=== PATIENT | female | born 1950 | race Caucasian/White ===

== ENCOUNTER 2020-11-01 13:27 | Day surgery (SDC) | payer MEDICARE, BC ==
[2020-10-30 10:25] VITALS: BMI 25.4
[~2020-11-01 13:27] MED LIST: ACETAMINOPHEN TAB 500 MG TAB PO PRN; DEXAMETHASONE SOD PHOSPHATE 4 MG/ML 1 ML VIAL IV ONE; HEPARIN SODIUM,PORCINE/PF 5,000 UNIT/0.5 ML SYRINGE SQ PRN; HYDROmorphone 0.5 MG/0.5 ML SYRINGE IVP PRN; LACTATED RINGERS 1,000 ML IV SCH; LIDOCAINE 1% (10MG/ML) FOR IV START INTRADERMA PRN; MIDAZOLAM 2 MG/2 ML VIAL IV PRN; ONDANSETRON 4 MG/2 ML VIAL IVP ONE; Pre Op ABX Message 1 EACH MISC MISCELLANE ONE
[2020-11-01 14:15] VITALS: TEMP 98.3
--- NOTE | 2020-11-01 14:28 | P.GSHP ---
History of Present Illness H&P Date: 11/01/20 Chief Complaint: With the melanoma right lateral back This 70-year-old female referred from Dr. Cleveland walker. 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 She will stay for wide local excision. Past Medical History Past Medical History: Cancer, Thyroid Disorder Additional Past Medical History / Comment(s): skin ca, malignant melanoma on back, varicose veins History of Any Multi-Drug Resistant Organisms: None Reported Past Surgical History: Back Surgery Additional Past Surgical History / Comment(s): back surgery Past Anesthesia/Blood Transfusion Reactions: No Reported Reaction Smoking Status: Never smoker - Past Family History Mother Family Medical History: Cancer Additional Family Medical History / Comment(s): kidney Sister(s) Family Medical History: Cancer Additional Family Medical History / Comment(s): ovarian Medications and Allergies Home Medications Medication Instructions Recorded Confirmed Type Thyroid,Pork [Principal Secretary Thyroid] 120 mg PO DAILY 10/30/20 11/01/20 History Allergies Allergy/AdvReac Type Severity Reaction Status Date / Time No Known Allergies Allergy Verified 11/01/20 14:19 Surgical - Exam Vital Signs Temp Pulse Resp BP Pulse Ox 98.3 F 62 16 156/66 96 11/01/20 13:58 11/01/20 13:58 11/01/20 13:58 11/01/20 13:58 11/01/20 13:58 - General well developed, well nourished, no distress - Eyes PERRL - ENT normal pinna - Neck no masses - Respiratory normal expansion - Cardiovascular Rhythm: regular - Abdomen Abdomen: soft, non tender - Genitourinary normal external genitalia - Integumentary 2 cm erythematous area of seen biopsy right lower back Assessment and Plan Assessment: Superficial spreading melanoma right lower back. We'll perform wide local excision.
[2020-11-01] MEDS ORDERED: LIDOCAINE 2%-EPI 1:100,000 20 ML VIAL SQ ONE (16:20)
[2020-11-01] MEDS ORDERED: fentaNYL (PF) 50 MCG/ML 2 ML AMP ONE (16:23)
[2020-11-01] MEDS ORDERED: MIDAZOLAM 2 MG/2 ML VIAL ONE (16:23)
[2020-11-01] MEDS ORDERED: PROPOFOL 10 MG/ML 20 ML VIAL IV ONE (16:23)
[2020-11-01] MEDS ORDERED: LIDOCAINE 1% INJ 10MG/ML (20 ML MDV) ONE (16:23)
--- NOTE | 2020-11-01 17:02 | P.OP ---
Date of Procedure: 11/01/20 Preoperative Diagnosis: Malignant melanoma back Postoperative Diagnosis: Malignant melanoma back Procedure(s) Performed: Wide local excision of malignant melanoma of back Anesthesia: TAMY Surgeon: Jackson Bell Pathology: other (Wide local excision of melanoma of back) Condition: stable Disposition: PACU Description of Procedure: Patient's placed on the operative table in the supine position she received IV sedation and just placed the prone position. Her back was prepped and draped usual sterile fashion. The patient's lesion was on the right lower back. There is less is 1% local Xylocaine. Then using elliptical skin incision lesion was excised. The suture tag was placed on the superior edge of the specimen. Specimens of pathology. It was dissected out with left cautery. The skin was closed interrupted 3-0 nylon suture. Sterile dressing applied. Patient top she will was sent to recovery room in stable patient.
[2020-11-01 17:14] VITALS: RESP 16
[2020-11-01 17:36] VITALS: BP 111/59; PULSE 74
== END 2020-11-01 17:53 | disposition home or self-care (01) ==
LOC: OR 13:27
PROVIDERS: ATTEND Surgery
DX: C43.59 Malignant melanoma of other part of trunk (principal); E07.9 Disorder of thyroid, unspecified; I83.90 Asymptomatic varicose veins of unspecified lower extremity; Z80.51 Family history of malignant neoplasm of kidney; Z80.41 Family history of malignant neoplasm of ovary; Z79.890 Hormone replacement therapy
CPT/HCPCS: 11606; 88305; 88342; 88341; J2250; J1100; J2405; J2001; J3010; J2704; J1644

== ENCOUNTER → 2020-12-04 | Outpatient (CLI) | payer MEDICARE, BC ==
--- NOTE | 2020-12-04 18:54 | BD ---
EXAMINATION TYPE: Axial Bone Density DATE OF EXAM: 12/04/2020 COMPARISON: 12.04.2005 CLINICAL HISTORY: 70 YR OLD FEMALE....ICD-10 CODE: Z78.0 POST MENOPAUSAL Height: 64.4 Weight: 169 FRAX RISK QUESTIONS: Family History (Parent hip fracture): YES History of Fracture in Adulthood: YES RISK FACTORS HISTORY OF: Spine Fracture: YES, LUMBAR SPINE WITH LAMINECTOMY Surgery to Spine YES, LAMINECTOMY LUMBAR SPINE Family History of Osteoporosis: YES, MOTHER AND SISTER, WITH HIP REPLACEMENTS Postmenopausal woman: YES, AT ABOUT 45, 46 YRS OLD Take estrogen and/or progesterone medications: YES, FOR OVER 20 YRS, STOPPED 1 YR AGO Lost more than 2 inches in height since high school: YES Hyperparathyroidism: UNSURE Adrenal Insufficiency: UNSURE MEDICATIONS: Thyroid Medications: YES, AUTOMATED CUTTING MACHINE OPERATOR THYROID, 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 Bone mineral density about the R hip (g/cm2): 0.844 Bone mineral density about the L hip (g/cm2): 0.791 T Score values are as follows: -----R Neck: -1.6 -----L Neck: -1.6 -----R Total: -1.3 -----L Total: -1.7 Bone mineral density has: Increased 1.6% since study of: 12.04.2005 FRAX%s: THERE IS A 16.3% CHANCE FOR A MAJOR OSTEOPOROTIC FX AND A 2.5% FOR HIP.....PROBABILITY FOR FX IN 10 YRS TIME Bone mineral density about the L Wrist (g/cm2): 0.570 T Score values are as follows: -----Dist. R+U: 0.7 -----Prox. R+U: -1.5 -----Radius total: -1.4 Bone mineral density FIRST FOREARM SCAN FOR PATIENT IMPRESSION: Osteopenia (T Score between -2.5 and -1). There is slightly increased risk of fracture and the patient may be considered for treatment. Re-Screen 2-5 years. NOTE: T-SCORE=SD OF THE YOUNG ADULT MEAN.
--- NOTE | 2020-12-05 10:46 | MM ---
Reason for exam: screening (asymptomatic). Last mammogram was performed 2 years and 8 months ago. History: Patient is postmenopausal, has history of other cancer at age 70, and is nulliparous. Benign excisional biopsy of the right breast, 1989. Physical Findings: A clinical breast exam by your physician is recommended on an annual basis and results should be correlated with mammographic findings. MG 3D Screening Mammo W/Cad Bilateral CC and MLO view(s) were taken. Prior study comparison: April 03, 2018, mammogram, performed at [facility]. The breast tissue is heterogeneously dense. This may lower the sensitivity of mammography. There are benign appearing round linear calcifications bilaterally. There is no discrete abnormality. ASSESSMENT: Negative, BI-RAD 1 RECOMMENDATION: Routine screening mammogram of both breasts in 1 year.
== END | disposition home or self-care (01) ==
LOC: RADMAMWWP 10:09
PROVIDERS: ATTEND Family Medicine
DX: Z12.31 Encounter for screening mammogram for malignant neoplasm of breast (principal); Z78.0 Asymptomatic menopausal state; M85.80 Other specified disorders of bone density and structure, unspecified site
CPT/HCPCS: 77063; 77067; 77080

== ENCOUNTER → 2023-07-14 | Outpatient (CLI) | payer MEDICARE, BC ==
--- NOTE | 2023-07-14 09:21 | BD ---
EXAMINATION TYPE: Axial Bone Density DATE OF EXAM: 07/14/2023 CLINICAL HISTORY: 73 years old Female. ICD-10 CODE: Z12.31 SCR MAMMO M85.80 OTHER DISORDER OF BONE Height: 64in Weight: 167lb FRAX RISK QUESTIONS: Family History (Parent hip fracture): yes History of Fracture in Adulthood: yes Secondary Osteoporosis: RISK FACTORS HISTORY OF: Spine Fracture: yes, lumbar When: 1984 History of Wrist Fracture: yes, right forearm When: 1984 Surgery to Spine/Hip(right/left)/Wrist (right/left): lumbar When: 1984 MEDICATIONS: Thyroid Medications: Which medication: yes, unsure of which one How Lon+years EXAM MEASUREMENTS: Bone mineral densitometry was performed using the [employer] System. Bone mineral density about the R hip (g/cm2): 0.805 Bone mineral density about the L hip (g/cm2): 0.786 T Score values are as follows: -----R Neck: -2.3 -----L Neck: -1.8 -----R Total: -1.6 -----L Total: -1.8 Z Score values are as follows: -----R Neck: -0.7 -----L Neck: -0.2 -----R Total: -0.2 -----L Total: -0.4 Bone mineral density has: Decreased -2.8% since study of: 12-04-20 FRAX%s: The graph provided illustrates a 34.4% chance for a major osteoporotic fx and a 17% chance fo r the hips probability for fx in 10 years time. IMPRESSION: Osteopenia (T Score between -2.5 and -1). There is slightly increased risk of fracture and the patient may be considered for treatment. Re-Screen 2-5 years. NOTE: T-SCORE=SD OF THE YOUNG ADULT MEAN.
--- NOTE | 2023-07-15 14:14 | MM ---
Reason for Exam: Screening (asymptomatic). Last mammogram was performed 2 year(s) and 7 month(s) ago. Patient History: Menarche at age 13. Patient has no children. Postmenopausal. Other cancer, age 70. 1989, Benign Excisional Biopsy on the right side. Risk Values: Ivania 5 year model risk: 2.3%. NCI Lifetime model risk: 5.7%. Prior Study Comparison: 04/03/2018 Screening Mammogram, [facility]. 12/04/2020 Bilateral Screening Mammogram, [facility]. Tissue Density: The breasts are heterogeneously dense, which may obscure small masses. Findings: Analyzed By CAD. There is no suspicious group of microcalcifications or new suspicious mass. Overall Assessment: Negative, BI-RAD 1 Management: Screening Mammogram of both breasts in [address] [facility] will attempt to contact patient to return for supplemental views and ultrasound if indicated. Patient should continue monthly self-breast exams. A clinical breast exam by your physician is recommended on an annual basis. This exam should not preclude additional follow-up of suspicious palpable abnormalities. Note on Ivania scores and lifetime risk: 1. A Ivania score greater than 3% is considered moderate risk. If this is the case, consider specialist referral to assess eligibility for a risk reducing agent. 2. If overall lifetime risk for the development of breast cancer is 20% or higher, the patient may qualify for future screening with alternating mammogram and breast MRI. Electronically signed and approved by: Smooth Comer DO
== END | disposition home or self-care (01) ==
LOC: RADMAMWWP 07:43
PROVIDERS: ATTEND Family Medicine
DX: Z12.31 Encounter for screening mammogram for malignant neoplasm of breast (principal); Z78.0 Asymptomatic menopausal state; M85.89 Other specified disorders of bone density and structure, multiple sites
CPT/HCPCS: 77063; 77067; 77080

== ENCOUNTER → 2024-11-15 | Outpatient (CLI) | payer MEDICARE, BC ==
--- NOTE | 2024-11-15 10:44 | MM ---
Reason for Exam: Screening (asymptomatic). Last mammogram was performed 1 year(s) and 4 month(s) ago. Patient History: Menarche at age 13. Patient has no children. Postmenopausal. Other cancer, age 70. 1989, Benign Excisional Biopsy on the right side. Risk Values: Ivania 5 year model risk: 2.3%. NCI Lifetime model risk: 5.3%. Prior Study Comparison: 04/03/2018 Screening Mammogram, [facility]. 12/04/2020 Bilateral Screening Mammogram, [facility]. 07/14/2023 Bilateral MG 3D screening mammo w/cad, [facility]. Tissue Density: The breasts are heterogeneously dense, which may obscure small masses. Findings: Analyzed By CAD. There is no suspicious group of microcalcifications or new suspicious mass in either breast. Overall Assessment: Benign, BI-RAD 2 Management: Screening Mammogram of both breasts in 1 year. . Patient should continue monthly self-breast exams. A clinical breast exam by your physician is recommended on an annual basis. This exam should not preclude additional follow-up of suspicious palpable abnormalities. Note on Iavnia scores and lifetime risk: 1. A Ivania score greater than 3% is considered moderate risk. If this is the case, consider specialist referral to assess eligibility for a risk reducing agent. 2. If overall lifetime risk for the development of breast cancer is 20% or higher, the patient may qualify for future screening with alternating mammogram and breast MRI. [facility], , 11/15/2024 10:41 AM. Electronically signed and approved by: Atul Lion M.D. Radiologis
== END | disposition home or self-care (01) ==
LOC: RADMAMWWP 10:03
PROVIDERS: ATTEND Family Medicine
DX: Z12.31 Encounter for screening mammogram for malignant neoplasm of breast (principal); R92.333 Mammographic heterogeneous density, bilateral breasts; Z78.0 Asymptomatic menopausal state
CPT/HCPCS: 77063; 77067